=== PATIENT | male | born 1965 | race Caucasian/White ===

== ENCOUNTER → 2016-12-23 | Outpatient (CLI) | payer BC ==
--- NOTE | 2016-12-23 16:52 | REP ---
MRI study left knee without contrast: History: Joint pain. No comparison imaging. Technique: Axial, coronal and sagittal imaging planes were utilized for T1, proton density T2-weighted scans obtained with and without fat saturation. MRI findings: Cortical and medullary bone signal intensity are normal. There is a mild joint effusion. There is a Courtney's cyst in the posteromedial popliteal soft tissues which measures 4.2 cm in greatest diameter. No loose body is appreciated. There is a focal area of chondromalacia involving the posterior aspect of the medial femoral condyle with subcortical cyst formation. There is a complex principally horizontal tear in the body and posterior horn of the medial meniscus. Moderate chondromalacia changes seen in the medial femoral condyle and medial tibial plateau. No lateral meniscal tear is seen. The lateral collateral ligament is intact. Anterior posterior cruciate ligaments have an intact appearance. Patellar and quadriceps tendons are unremarkable. The medial collateral ligament however is abnormally thickened and partially discontinuous consistent with a subacute high grade partial medial collateral ligament tear. Impression: 1. Complex principally horizontal extensive tear medial meniscus. Moderate medial compartment chondromalacia. 2. High-grade partial subacute tear medial collateral ligament. 3. Courtney's cyst. Signed by Obdulio Rodriguez MD 12/24/2016 08:15 A
== END ==
LOC: M RAD 14:54
PROVIDERS: ATTEND Orthopaedic Surgery
DX: S83.282A Other tear of lateral meniscus, current injury, left knee, initial encounter (principal); X58.XXXA Exposure to other specified factors, initial encounter; Y92.89 Other specified places as the place of occurrence of the external cause; Y93.89 Activity, other specified; Y99.8 Other external cause status; M71.22 Synovial cyst of popliteal space [Baker], left knee

== ENCOUNTER → 2017-03-24 | Outpatient (CLI) | payer BC ==
[2017-03-24 17:22] LABS: BASO % 0.3 % (0.0-1.0); EOS # 0.1 K/mm3 (0.0-0.50); EOS % 1.1 % (0.0-3.0); LARGE UNSTAINED CELL # 0.2 K/mm3 (0.0-0.4); LARGE UNSTAINED CELL % 2.3 % (0.0-4.0); LYMPH # 2.1 K/mm3 (1.5-4.5); LYMPH % 28.4 % (24.0-44.0); MEAN CORPUSCULAR HEMOGLOBIN 31.6 pg (27.0-33.0); MEAN CORPUSCULAR HGB CONC 35.2 g/dl (32.0-36.5); MEAN CORPUSCULAR VOLUME 89.9 fl (80.0-96.0); MONO # 0.4 K/mm3 (0.0-0.8); MONO % 5.5 % (0.0-5.0); NEUTROPHILS # 4.6 K/mm3 (1.8-7.7); NEUTROPHILS % 62.4 % (36.0-66.0); PLATELET COUNT, AUTOMATED 275 k/mm3 (150-450); RED CELL DISTRIBUTION WIDTH 12.5 % (11.5-14.5); WHITE BLOOD COUNT 7.3 K/mm3 (4.0-10.0)
[2017-03-24 18:21] LABS: CALCIUM LEVEL 9.4 MG/DL (8.5-10.1); CREATININE FOR GFR 1.45 MG/DL (0.70-1.30); GLOMERULAR FILTRATION RATE 54.8 (>56)
== END ==
LOC: M LAB 16:47
PROVIDERS: ATTEND Emergency Medicine
DX: M23.304 Other meniscus derangements, unspecified medial meniscus, left knee (principal)

== ENCOUNTER → 2017-07-29 | Outpatient (REF) | payer BC | LOC: M LAB REF 14:52 | PROVIDERS: ATTEND Podiatrist Foot & Ankle Surgery | DX: R23.4 Changes in skin texture (principal); D23.72 Other benign neoplasm of skin of left lower limb, including hip ==

== ENCOUNTER → 2017-09-12 | Outpatient (CLI) | payer BC | LOC: M RAD 14:54 | DX: M25.549 Pain in joints of unspecified hand (principal) | CPT/HCPCS: 73130 ==

== ENCOUNTER 2018-09-03 07:25 | Day surgery (SDC) | payer BC ==
[~2018-09-03] VITALS: Ht 182.9 cm; Wt 116.6 kg
[~2018-09-03 07:25] MED LIST: ALBU17IN2 INH; AMBI5TAB PO; ATOR40TA75 PO; BALANCED SALT IRRIGATION SOLUTION 500ML BAG (FOR OR EYE MACHINE) As Ordered ONE; BRIM2OPD OU; CEFUROXIME 1MG/0.1ML INTRACAMERAL INJ As Ordered ONE; DUOVISC (0.50ML VISCOAT/0.55ML PROVISC) OPHTH KIT As Ordered ONE; GABA-843 PO; L-LY500T PO; LATA1POW OS; LIDOCAINE 0.75%/EPINEPHRINE 0.025% IN BSS 1ML SYR INTRACAMERAL (OR ONLY) As Ordered ONE; MELO15TA28 PO; OFLOXACIN 0.3 % (OCUFLOX) OPTH SOL 5ML OS ONE; PHENYLEPHRINE 2.5% OPHTH SOL 2ML OS ONE; POVIDONE-IODINE 5% OPHTH PREP SOL 30ML As Ordered ONE; PROPARACAINE 0.5% OPHTH SOL 15ML OS ONE; TROPICAMIDE 1% OPHTH SOLN 2ML OS ONE; VENL100T PO
[2018-09-03] MEDS ORDERED: MIDAZOLAM INJ 2 MG/2 ML VIAL (J2250) As Ordered ONE ×2 (07:43→09:32)
[2018-09-03] MEDS ORDERED: fentaNYL 100 MCG/2 ML INJECTION (J3010) As Ordered ONE (07:43)
[2018-09-03] MEDS ORDERED: DUOVISC (0.50ML VISCOAT/0.55ML PROVISC) OPHTH KIT As Ordered ONE ×2 (09:37→09:51)
[2018-09-03] MEDS ORDERED: ACETYLCHOLINE OPHTH SOLN 1% 2ML (MIOCHOL-E) As Ordered ONE (10:11)
[2018-09-03 10:55] VITALS: BP 113/65
--- NOTE | 2018-09-04 08:31 | RO ---
DATE OF PROCEDURE: 09/03/2018 PREOPERATIVE DIAGNOSES: 1. Visually significant nuclear sclerotic cataract left eye. 2. Astigmatism left eye. 3. Primary open angle glaucoma, moderate stage left eye. POSTOPERATIVE DIAGNOSES: 1. Visually significant nuclear sclerotic cataract left eye. 2. Astigmatism left eye. 3. Primary open angle glaucoma, moderate stage left eye. PROCEDURE: 1. Cataract extraction with use of phacoemulsification, and placement of intraocular lens, SN6AT3, 10.5 D, left eye, with use of femtosecond laser at 161 degrees 2. Placement of limbal relaxing incisions left eye. 3. Placement of Glaukos iStent left eye. SURGEON: Rm Sorenson DO BUSINESS SYSTEMS DEVELOPER: None. ANESTHESIA: Local with monitored anesthesia care (MAC). COMPLICATIONS: None POSTOPERATIVE CONDITION: Stable INDICATIONS FOR SURGERY: 1. Blurred vision affecting patients activities of daily living. DESCRIPTION OF PROCEDURE: The patient was seen in the preoperative area and properly identified. The correct operative eye was identified and marked. The patient received topical anesthetic, antibiotics, and topical dilating drops. The patient was then transferred to the laser room. The patient was positioned under the laser. A time-out was performed. The laser was applied. A 4.8 mm capsulotomy, fragmentation, and limbal relaxing incisions were created. The patient tolerated the procedure well and was transferred to the operating room. The correct side was re-identified and a time-out was performed. The eye was prepped and draped in a sterile fashion. The eyelids were isolated with Tegaderm tape, and the lids were held open with an adjustable speculum. A 1.0 mm paracentesis incision was made. Intraocular preservative-free Shugarcaine was then injected into the anterior chamber. Viscoelastic was then injected into the anterior chamber through the paracentesis. Using a 2.4 mm sharp-tipped keratome, the anterior chamber was entered via a temporal clear cornea incision. Utrata forceps were used to removed the free floating capsulotomy. A continuous curvilinear capsulorrhexis was created with Utrata forceps. Hydrodissection was performed with balanced salt solution (BSS) on a blunt cannula until the nucleus was able to rotate freely. The crystalline lens was phacoemulsified and aspirated. Irrigation/aspiration was used to remove the cortical material Cohesive viscoelastic was placed into the capsular bag to deepen it. The ORA device was turned on and two sets of measurements were taken and the implant power was confirmed. The implant was placed into the capsular bag and allowed to unfold. Placement was confirmed by visualizing the anterior capsulorrhexis. The implant was aligned at 161 degrees. Additional viscoelastic was placed in the anterior chamber and on top of the cornea. The head was untaped and rotated away. The microscope was rotated to 45 degrees. A gonioprism was placed on the cornea, and the angle was visualized. An iStent was placed into the trabecular meshwork without difficulty. A small gush of heme was noted at the iStent snorkel tip, indicating appropriate placement. A gentle tapping motion was used to seat the stent into position. The head was placed face up and the microscope to 0 degrees. Irrigation/aspiration was used to remove the viscoelastic. The clear corneal incision was hydrated with BSS on a blunt cannula. The lens was well positioned. The incisions were then tested for leaks and found to be negative. The eye was then palpated for appropriate pressure and adjusted accordingly with BSS. The eyelid speculum was then carefully removed. A shield was placed over the eye. The patient tolerated the procedure well and was discharge to the recovery unit in a stable condition. PAMELLA
== END 2018-09-03 11:04 | disposition home or self-care (01) ==
LOC: M SDC 07:25
PROVIDERS: ATTEND Ophthalmology
DX: H25.12 Age-related nuclear cataract, left eye (principal); H52.202 Unspecified astigmatism, left eye; H40.812 Glaucoma with increased episcleral venous pressure, left eye; G47.30 Sleep apnea, unspecified; J45.909 Unspecified asthma, uncomplicated; F41.9 Anxiety disorder, unspecified; E78.5 Hyperlipidemia, unspecified; Z91.030 Bee allergy status; Z79.899 Other long term (current) drug therapy
CPT/HCPCS: 65772; 66183; 66984; C1783; J2250; J3010

== ENCOUNTER 2018-11-05 07:30 | Day surgery (SDC) | payer BC ==
[~2018-11-05] VITALS: Ht 182.9 cm; Wt 117.9 kg
[~2018-11-05 07:30] MED LIST changes: +ACETAMINOPHEN 325 MG TAB PO PRN; +MIDAZOLAM INJ 2 MG/2 ML VIAL (J2250) As Ordered ONE; +OFLOXACIN 0.3 % (OCUFLOX) OPTH SOL 5ML OD ONE; -OFLOXACIN 0.3 % (OCUFLOX) OPTH SOL 5ML OS ONE; +PHENYLEPHRINE 2.5% OPHTH SOL 2ML OD ONE; -PHENYLEPHRINE 2.5% OPHTH SOL 2ML OS ONE; +PROPARACAINE 0.5% OPHTH SOL 15ML OD ONE; +PROPARACAINE 0.5% OPHTH SOL 15ML OD PRN; -PROPARACAINE 0.5% OPHTH SOL 15ML OS ONE; +TIZA4CAP6 PO; +TROPICAMIDE 1% OPHTH SOLN 2ML OD ONE; -TROPICAMIDE 1% OPHTH SOLN 2ML OS ONE; +fentaNYL 100 MCG/2 ML INJECTION (J3010) As Ordered ONE
[2018-11-05] MEDS ORDERED: VALI5TAB PO (08:01)
[2018-11-05] MEDS ORDERED: PROPARACAINE 0.5% OPHTH SOL 15ML As Ordered ONE (09:40)
[2018-11-05] MEDS ORDERED: ACETYLCHOLINE OPHTH SOLN 1% 2ML (MIOCHOL-E) As Ordered ONE (09:46)
[2018-11-05 10:30] VITALS: BP 120/76
[2018-11-05] MEDS ORDERED: TRIMETHOBENZAMIDE 300 MG CAP PO PRN (11:15)
--- NOTE | 2018-11-06 21:16 | RO ---
DATE OF PROCEDURE: 11/05/2018 PREPROCEDURE DIAGNOSES: 1. Visually significant cataract of the right eye. 2. Primary open angle glaucoma, mild stage. 3. Regular astigmatism. PREPROCEDURE DIAGNOSES: 1. Visually significant cataract of the right eye. 2. Primary open angled glaucoma, mild stage. 3. Regular astigmatism. PROCEDURES: 1. Extracapsular cataract removal with insertion of intraocular lens implant of the right eye, SN6AT3, 13.0 D at 23 degrees with use of intraoperative aberrometry and femtosecond laser. 2. Placement limbal relaxing incisions, right eye 3. Use of endoscopic cyclophotocoagulation, right eye (continuous mode, 270 degrees, 0.3mW) 4. Placement of iStent inject, right eye SURGEON: Rm Sorenson DO MARKETING TRAINEE: None. ANESTHESIA: Local with monitored anesthesia care (MAC). COMPLICATIONS: None POSTOPERATIVE CONDITION: Stable INDICATIONS FOR SURGERY: 1. Blurred vision affecting patients activities of daily living. DESCRIPTION OF PROCEDURE: The patient was seen in the preoperative area and properly identified. The correct operative eye was identified and marked. The patient received topical anesthetic, antibiotics, and topical dilating drops. The patient was then transferred to the laser room. The patient was positioned under the laser. A timeout was performed. The laser was applied. A 4.8 mm capsulotomy, fragmentation, and limbal relaxing incisions were created. The patient tolerated the procedure well and was transferred to the operating room. The correct side was re-identified and a timeout was performed. The eye was prepped and draped in a sterile fashion. The eyelids were isolated with Tegaderm tape and the lids were held open with an adjustable speculum. A 1.0 mm paracentesis incision was made. Intraocular preservative free Shugarcaine was then injected into the anterior chamber. Viscoelastic was then injected into the anterior chamber through the paracentesis. Using a 2.4 mm sharp-tipped keratome, the anterior chamber was entered via a temporal clear cornea incision. Utrata forceps were used to removed the free floating capsulotomy. Hydrodissection was performed with BSS on a blunt cannula until the nucleus was able to rotate freely. The crystalline lens was phacoemulsified and aspirated. Irrigation/aspiration was used to remove the cortical material Cohesive viscoelastic was placed into the capsular bag to deepen it. The Optiwave Refractive Analysis (ORA) device was turned on, two sets of measurements were obtained, and the implant power was confirmed. Viscoelastic was placed into the ciliary sulcus, the ECP probe was used to visualize the ciliary processes. The laser was applied and the probe was withdrawn. Additional viscoelastic was placed in the anterior chamber and on top of the cornea. The head was untaped and rotated away. The microscope was rotated to 45 degrees. A gonioprism was placed on the cornea, and the angle was visualized. Two iStent inject devices were placed into the trabecular meshwork without difficulty 4 clock hours apart. A small gush of heme was noted at the iStent snorkel tip, indicating appropriate placement. The head was placed face up and the microscope to 0 degrees. The ORA was turned back on, and used to align the toric implant. Several sets of measurements were obtained and the implant was aligned with the 23 degree axis until no rotation needed was achieved. The clear corneal incision was hydrated with BSS on a blunt cannula. The lens was well positioned. The incisions were then tested for leaks and found to be negative. The eye was then palpated for appropriate pressure and adjusted accordingly with BSS. The implant was placed into the capsular bag and allowed to unfold. Placement was confirmed by visualizing the anterior capsulorrhexis. Irrigation/aspiration was used to remove the viscoelastic. The clear corneal incision was hydrated with BSS on a blunt cannula. The lens was well positioned. The incisions were then tested for leaks and found to be negative. The eye was then palpated for appropriate pressure and adjusted accordingly with BSS. Irrigation/aspiration was used to remove the viscoelastic. The clear corneal incision was hydrated with BSS on a blunt cannula. The lens was well positioned. The incisions were then tested for leaks and found to be negative. The eye was then palpated for appropriate pressure and adjusted accordingly with BSS. The eyelid speculum was then carefully removed. A shield was placed over the eye. The patient tolerated the procedure well and was discharged to the recovery unit in a stable condition. PAMELLA
== END 2018-11-05 10:42 | disposition home or self-care (01) ==
LOC: M SDC 07:30
PROVIDERS: ATTEND Ophthalmology
DX: H25.11 Age-related nuclear cataract, right eye (principal); H40.1111 Primary open-angle glaucoma, right eye, mild stage; H52.221 Regular astigmatism, right eye; E78.5 Hyperlipidemia, unspecified; F41.9 Anxiety disorder, unspecified; G47.30 Sleep apnea, unspecified; Z91.030 Bee allergy status; Z79.899 Other long term (current) drug therapy; J45.909 Unspecified asthma, uncomplicated
CPT/HCPCS: 65772; 66183; 66711; 66984; C1783; J2250; J3010

== ENCOUNTER → 2019-04-14 | Outpatient (CLI) | payer BC ==
[~2019-04-14] MED LIST changes: -ACETAMINOPHEN 325 MG TAB PO PRN; -ALBU17IN2 INH; -BALANCED SALT IRRIGATION SOLUTION 500ML BAG (FOR OR EYE MACHINE) As Ordered ONE; -CEFUROXIME 1MG/0.1ML INTRACAMERAL INJ As Ordered ONE; -DUOVISC (0.50ML VISCOAT/0.55ML PROVISC) OPHTH KIT As Ordered ONE; -L-LY500T PO; +L-LY500T15 PO; -LIDOCAINE 0.75%/EPINEPHRINE 0.025% IN BSS 1ML SYR INTRACAMERAL (OR ONLY) As Ordered ONE; -MIDAZOLAM INJ 2 MG/2 ML VIAL (J2250) As Ordered ONE; -OFLOXACIN 0.3 % (OCUFLOX) OPTH SOL 5ML OD ONE; -PHENYLEPHRINE 2.5% OPHTH SOL 2ML OD ONE; -POVIDONE-IODINE 5% OPHTH PREP SOL 30ML As Ordered ONE; -PROPARACAINE 0.5% OPHTH SOL 15ML OD ONE; -PROPARACAINE 0.5% OPHTH SOL 15ML OD PRN; +PROV108A INH; -TROPICAMIDE 1% OPHTH SOLN 2ML OD ONE; +VALI5TAB PO; -fentaNYL 100 MCG/2 ML INJECTION (J3010) As Ordered ONE
[2019-04-14 18:56] LABS: C REACTIVE PROTEIN QUANTITATIV < 0.30 MG/DL (0.00-0.30); TROPONIN I < 0.02 NG/ML (< 0.10)
[2019-04-14 20:06] LABS: CK-MB VALUE MASS < 1.0 NG/ML (<3.6); CPK CREATINE PHOSPHOKINASE 155 U/L (39-308); MB/CK RELATIVE INDEX 0.65 (< OR =4)
== END ==
LOC: M WUC 16:39
PROVIDERS: ATTEND Family Medicine
DX: R07.9 Chest pain, unspecified (principal)

== ENCOUNTER → 2020-04-11 | Outpatient (CLI) | payer BC ==
[2020-04-11 13:50] LABS: ALBUMIN 4.2 GM/DL (3.2-5.2); ALT/SGPT 24 U/L (12-78); BILIRUBIN,TOTAL 0.6 MG/DL (0.2-1.0); BLOOD UREA NITROGEN 16 MG/DL (7-18); CALCIUM LEVEL 9.6 MG/DL (8.5-10.1); CARBON DIOXIDE LEVEL 30 MEQ/L (21-32); CHLORIDE LEVEL 105 MEQ/L (98-107); CREATININE FOR GFR 1.51 MG/DL (0.70-1.30); GLOMERULAR FILTRATION RATE 51.7 (>56); GLUCOSE, FASTING 97 MG/DL (70-100); POTASSIUM SERUM 4.1 MEQ/L (3.5-5.1); RHEUMATOID FACTOR QUANT < 10.0 IU/ML (<15.0); SODIUM LEVEL 139 MEQ/L (136-145); TOTAL PROTEIN 7.5 GM/DL (6.4-8.2); URIC ACID 7.6 MG/DL (3.5-7.2)
[2020-04-11 13:53] LABS: BASO % 0.4 % (0.0-1.0); EOS # 0.1 10^3/uL (0.0-0.5); EOS % 1.3 % (0.0-3.0); LYMPH # 1.8 10^3/uL (1.5-5.0); LYMPH % 24.4 % (24.0-44.0); MEAN CORPUSCULAR HEMOGLOBIN 31.6 pg (27.0-33.0); MEAN CORPUSCULAR HGB CONC 34.2 g/dl (32.0-36.5); MEAN CORPUSCULAR VOLUME 92.5 fl (80.0-96.0); MONO # 0.6 10^3/uL (0.0-0.8); MONO % 7.3 % (0.0-5.0); NEUTROPHILS % 66.3 % (36.0-66.0); PLATELET COUNT, AUTOMATED 275 10^3/uL (150-450); RED BLOOD COUNT 4.11 10^6/uL (4.30-6.10); WHITE BLOOD COUNT 7.6 10^3/uL (4.0-10.0)
[2020-04-11 14:46] LABS: ERYTHROCYTE SEDIMENTATION RATE 15 mm/hr (0-20)
== END ==
LOC: M WUC 09:28
PROVIDERS: ATTEND Physician Assistant
DX: M25.541 Pain in joints of right hand (principal)

== ENCOUNTER → 2020-12-27 | Outpatient (CLI) | payer BC ==
[~2020-12-27] MED LIST changes: +GABA-282 PO; -GABA-843 PO
--- NOTE | 2020-12-28 07:38 | REP ---
INDICATION: CKD 3 COMPARISON: None TECHNIQUE: Real time breaux scale ultrasound examination using curved array transducer. FINDINGS: Bilateral kidneys are normal in contour, size, echogenicity, and reniform shape. Increased central sinus fat consistent with chronic renal disease. No hydronephrosis, nephrolithiasis, cystic or renal mass lesion. Right kidney measures 10.6 x 6.6 x 5.9 cm. Left kidney measures 10.9 x 6.1 x 5.7 cm. Bladder is grossly unremarkable. Prostate gland measures 3.4 x 3.8 x 5.2 cm (35 cc). IMPRESSION: 1. Findings consistent with the given history of chronic renal disease. <Electronically signed by Luis Cavazos > 12/28/20 0730
== END ==
LOC: M RAD 10:50
PROVIDERS: ATTEND Family Medicine
DX: N18.31 Chronic kidney disease, stage 3a (principal)

== ENCOUNTER → 2021-02-27 | Outpatient (CLI) | payer BC ==
--- NOTE | 2021-03-01 00:16 | REPVR ---
PROCEDURE INFORMATION: Exam: MR Lumbar Spine Without Contrast Exam date and time: 02/27/2021 4:19 PM Age: 56 years old Clinical indication: Low back pain; Additional info: Lbp TECHNIQUE: Imaging protocol: Multiplanar magnetic resonance images of the lumbar spine without intravenous contrast. COMPARISON: RENAL US 12/27/2020 11:08 AM FINDINGS: Patient motion. Anterolisthesis of L5 on S1 measures 9 mm and is secondary to bilateral L5 pars defects. Mild retrolisthesis of L2 on L3, L3 on L4 and L4 on L5. Vertebral body heights are preserved. Multilevel disc desiccation. Disc space narrowing greatest at L5-S1, moderate. No evidence of discitis/osteomyelitis. Conus medullaris terminates at T12-L1. No epidural fluid collection. L1-L2: Minimal disc bulge and mild bilateral facet joint arthropathy without significant central or foraminal stenosis. L2-L3: Mild disc bulge with mild bilateral facet joint arthropathy and small bilateral facet joint effusions. No significant central canal stenosis. There is mild right foraminal stenosis. L3-L4: Mild disc bulge with mild bilateral facet joint arthropathy, small to moderate facet joint effusions and posterior laxity of ligamentum flavum. No significant central canal stenosis. Mild right and [id number] left foraminal stenosis. L4-L5: Mild disc bulge with mild facet joint arthropathy and small bilateral facet joint effusions. No significant central canal stenosis. [id number] right and mild left foraminal stenosis. L5-S1: Unroofing of disc with disc bulge and bilateral facet joint arthropathy. No central canal stenosis. There is severe bilateral foraminal stenosis with mass effect upon both exiting L5 nerves. IMPRESSION: 1. Bilateral L5 pars defects with anterolisthesis of L5 on S1 and degenerative findings contributing to severe bilateral foraminal stenosis at L5-S1 with mass effect upon both exiting L5 nerves. 2. No significant central canal compromise throughout the lumbar spine. Electronically signed by: Rogers Murillo On 03/01/2021 00:16:06 AM
== END ==
LOC: M PLAIMG 15:45
PROVIDERS: ATTEND Physician Assistant
DX: M51.26 Other intervertebral disc displacement, lumbar region (principal); M43.16 Spondylolisthesis, lumbar region

== ENCOUNTER → 2021-04-04 | Outpatient (CLI) | payer BC ==
[2021-04-04 15:08] LABS: BASO % 0.3 % (0.0-1.0); EOS % 0.3 % (0.0-3.0); HEMATOCRIT 36.5 % (42.0-52.0); HEMOGLOBIN 12.8 g/dl (13.5-17.5); LYMPH % 26.7 % (24.0-44.0); MEAN CORPUSCULAR HEMOGLOBIN 32.7 pg (27.0-33.0); MEAN CORPUSCULAR HGB CONC 35.1 g/dl (32.0-36.5); MEAN CORPUSCULAR VOLUME 93.4 fl (80.0-96.0); MONO # 0.6 10^3/uL (0.0-0.8); MONO % 7.6 % (2.0-8.0); NEUTROPHILS # 4.8 10^3/uL (1.5-8.5); NEUTROPHILS % 64.8 % (36.0-66.0); PLATELET COUNT, AUTOMATED 260 10^3/uL (150-450); RED BLOOD COUNT 3.91 10^6/uL (4.30-6.10); WHITE BLOOD COUNT 7.4 10^3/uL (4.0-10.0)
[2021-04-04 15:41] LABS: ALBUMIN 3.9 GM/DL (3.2-5.2); BILIRUBIN,TOTAL 0.8 MG/DL (0.2-1.0); CALCIUM LEVEL 9.5 MG/DL (8.5-10.1); CHOLESTEROL RISK RATIO 2.891 (<5); CREATININE FOR GFR 1.52 MG/DL (0.70-1.30); GLOMERULAR FILTRATION RATE 51.1 (>56); PERCENT SATURATION 47.1 % (19.7-50.0); TOTAL PROTEIN 7.4 GM/DL (6.4-8.2); URIC ACID 6.6 MG/DL (3.5-7.2)
[2021-04-04 15:44] LABS: TOTAL 25(OH) VITAMIN D 28.3 NG/ML (30.0-100.0)
== END ==
LOC: M PLALAB 12:51
PROVIDERS: ATTEND Family Medicine
DX: N18.31 Chronic kidney disease, stage 3a (principal); E78.2 Mixed hyperlipidemia; E55.9 Vitamin D deficiency, unspecified; M10.9 Gout, unspecified; D50.9 Iron deficiency anemia, unspecified; Z12.5 Encounter for screening for malignant neoplasm of prostate
CPT/HCPCS: 36415; 80053; 80061; 82306; 82728; 83550; 84550; 85025; G0103

== ENCOUNTER → 2021-04-04 | Outpatient (CLI) | payer BC ==
[2021-04-04 15:08] LABS: HEMATOCRIT 35.8 % (42.0-52.0); HEMOGLOBIN 12.6 g/dl (13.5-17.5); MEAN CORPUSCULAR HEMOGLOBIN 32.8 pg (27.0-33.0); MEAN CORPUSCULAR HGB CONC 35.2 g/dl (32.0-36.5); MEAN CORPUSCULAR VOLUME 93.2 fl (80.0-96.0); PLATELET COUNT, AUTOMATED 253 10^3/uL (150-450); RED BLOOD COUNT 3.84 10^6/uL (4.30-6.10); WHITE BLOOD COUNT 7.6 10^3/uL (4.0-10.0)
[2021-04-04 15:36] LABS: PERCENT SATURATION 39.1 % (19.7-50.0)
== END ==
LOC: M PLALAB 12:53
PROVIDERS: ATTEND Nurse Practitioner Family
DX: D50.9 Iron deficiency anemia, unspecified (principal)

== ENCOUNTER → 2021-06-07 | Outpatient (CLI) | payer BC ==
[2021-06-07 16:41] LABS: HEMATOCRIT 33.9 % (42.0-52.0); HEMOGLOBIN 11.3 g/dl (13.5-17.5); MEAN CORPUSCULAR HEMOGLOBIN 32.1 pg (27.0-33.0); MEAN CORPUSCULAR HGB CONC 33.3 g/dl (32.0-36.5); MEAN CORPUSCULAR VOLUME 96.3 fl (80.0-96.0); PLATELET COUNT, AUTOMATED 233 10^3/uL (150-450); RED BLOOD COUNT 3.52 10^6/uL (4.30-6.10); WHITE BLOOD COUNT 6.6 10^3/uL (4.0-10.0)
== END ==
LOC: M WUC 12:06
PROVIDERS: ATTEND Nurse Practitioner Family
DX: D50.9 Iron deficiency anemia, unspecified (principal)

== ENCOUNTER → 2021-09-11 | Outpatient (CLI) | payer BC | LOC: M RAD 10:01 | PROVIDERS: ATTEND Physician Assistant | DX: J45.30 Mild persistent asthma, uncomplicated (principal) ==

== ENCOUNTER → 2021-10-04 | Outpatient (CLI) | payer BC ==
[2021-10-04 15:35] LABS: HEMATOCRIT 36.5 % (42.0-52.0); HEMOGLOBIN 12.5 g/dl (13.5-17.5); MEAN CORPUSCULAR HGB CONC 34.2 g/dl (32.0-36.5); MEAN CORPUSCULAR VOLUME 90.6 fl (80.0-96.0); PLATELET COUNT, AUTOMATED 263 10^3/uL (150-450); RED BLOOD COUNT 4.03 10^6/uL (4.30-6.10); WHITE BLOOD COUNT 7.5 10^3/uL (4.0-10.0)
[2021-10-04 16:05] LABS: PERCENT SATURATION 24.5 % (19.7-50.0)
== END ==
LOC: M WUC 13:11
PROVIDERS: ATTEND Nurse Practitioner Family
DX: K22.70 Barrett's esophagus without dysplasia (principal); K44.9 Diaphragmatic hernia without obstruction or gangrene; K25.3 Acute gastric ulcer without hemorrhage or perforation; K57.30 Diverticulosis of large intestine without perforation or abscess without bleeding; D50.9 Iron deficiency anemia, unspecified

== ENCOUNTER → 2022-02-18 | Outpatient (CLI) | payer BC ==
[2022-02-18 10:16] LABS: BASO % 0.5 % (0.0-1.0); EOS # 0.1 10^3/uL (0.0-0.5); EOS % 1.4 % (0.0-3.0); HEMATOCRIT 35.2 % (42.0-52.0); HEMOGLOBIN 11.9 g/dl (13.5-17.5); LYMPH # 1.8 10^3/uL (1.5-5.0); LYMPH % 22.4 % (24.0-44.0); MEAN CORPUSCULAR HGB CONC 33.8 g/dl (32.0-36.5); MEAN CORPUSCULAR VOLUME 91.7 fl (80.0-96.0); MONO # 0.7 10^3/uL (0.0-0.8); MONO % 8.8 % (2.0-8.0); NEUTROPHILS # 5.2 10^3/uL (1.5-8.5); NEUTROPHILS % 66.4 % (36.0-66.0); PLATELET COUNT, AUTOMATED 219 10^3/uL (150-450); RED BLOOD COUNT 3.84 10^6/uL (4.30-6.10); WHITE BLOOD COUNT 7.9 10^3/uL (4.0-10.0)
[2022-02-18 15:29] LABS: BILIRUBIN,TOTAL 0.6 MG/DL (0.2-1.0); CALCIUM LEVEL 9.4 MG/DL (8.5-10.1); CHOLESTEROL RISK RATIO 3.522 (<5); CREATININE FOR GFR 1.64 MG/DL (0.70-1.30); GLOMERULAR FILTRATION RATE 46.7 (>56); POTASSIUM SERUM 4.3 MEQ/L (3.5-5.1); TOTAL 25(OH) VITAMIN D 56.7 NG/ML (30.0-100.0); TOTAL PROTEIN 7.1 GM/DL (6.4-8.2)
[2022-02-19 00:49] LABS: HEMOGLOBIN A1c 5.4 %
== END ==
LOC: M LAB 09:28
PROVIDERS: ATTEND Physician Assistant
DX: M10.9 Gout, unspecified (principal); K22.70 Barrett's esophagus without dysplasia; E55.9 Vitamin D deficiency, unspecified; E78.2 Mixed hyperlipidemia

== ENCOUNTER → 2022-07-17 | Outpatient (CLI) | payer BC ==
[~2022-07-17] MED LIST changes: +ALBU6.7H6 INH; -PROV108A INH
[2022-07-17 19:36] LABS: HEMATOCRIT 36.7 % (42.0-52.0); HEMOGLOBIN 12.2 g/dl (13.5-17.5); MEAN CORPUSCULAR HEMOGLOBIN 31.3 pg (27.0-33.0); MEAN CORPUSCULAR HGB CONC 33.2 g/dl (32.0-36.5); MEAN CORPUSCULAR VOLUME 94.1 fl (80.0-96.0); PLATELET COUNT, AUTOMATED 270 10^3/uL (150-450); WHITE BLOOD COUNT 7.8 10^3/uL (4.0-10.0)
[2022-07-17 19:39] LABS: FERRITIN 70.2 NG/ML (10.5-307.3)
[2022-07-18 00:09] LABS: PERCENT SATURATION 23.3 % (19.7-50.0)
== END ==
LOC: M WUC 15:11
PROVIDERS: ATTEND Nurse Practitioner Family
DX: K22.0 Achalasia of cardia (principal); K25.3 Acute gastric ulcer without hemorrhage or perforation; K51.30 Ulcerative (chronic) rectosigmoiditis without complications; K44.9 Diaphragmatic hernia without obstruction or gangrene; D50.9 Iron deficiency anemia, unspecified

== ENCOUNTER → 2022-10-03 | Outpatient (REF) | payer BC | LOC: M LAB REF 16:46 | PROVIDERS: ATTEND Physician Assistant | DX: S91.101A Unspecified open wound of right great toe without damage to nail, initial encounter (principal); W18.30XA Fall on same level, unspecified, initial encounter; Y92.009 Unspecified place in unspecified non-institutional (private) residence as the place of occurrence of the external cause ==

== ENCOUNTER → 2022-10-04 | Outpatient (CLI) | payer BC | LOC: M WUC 14:19 | PROVIDERS: ATTEND Physician Assistant | DX: S91.101A Unspecified open wound of right great toe without damage to nail, initial encounter (principal); W18.30XA Fall on same level, unspecified, initial encounter; Y92.009 Unspecified place in unspecified non-institutional (private) residence as the place of occurrence of the external cause ==

== ENCOUNTER → 2023-01-03 | Outpatient (CLI) | payer BC | LOC: M PLAIMG 10:21 | PROVIDERS: ATTEND Physician Assistant | DX: M25.512 Pain in left shoulder (principal) ==

== ENCOUNTER → 2023-04-29 | Outpatient (CLI) | payer BC | LOC: M RAD 16:02 | PROVIDERS: ATTEND Physician Assistant | DX: K40.90 Unilateral inguinal hernia, without obstruction or gangrene, not specified as recurrent (principal) ==

== ENCOUNTER → 2023-07-10 | Day surgery (SDC) | payer BC ==
[~2023-07-10] VITALS: Ht 182.9 cm; Wt 111.1 kg
[~2023-07-10] MED LIST changes: +ACETAMINOPHEN 1000MG 100ML IV BAG As Ordered ONE; +ALLO100T PO; +AMPH1CAP15 PO; +DICL20GE TP; +GLYCOPYRROLATE INJ 0.2 MG/ML 2 ML VIAL As Ordered ONE; +HYDROMORPHONE HCL 0.5 MG/ 0.5 ML SYRINGE IV PRN; +KETOROLAC 60MG 2ML VIAL As Ordered ONE; +LIDOCAINE 1% SDV 5ML VIAL SC PRN; +LIDOCAINE 2% 100MG/5ML SDV (FOR ANES.) As Ordered ONE; +LR 1,000 ML IV SCH; +LUMIGAN OD; +MIDAZOLAM INJ 2MG/2ML VIAL As Ordered ONE; +ONDANSETRON 4MG 2ML VIAL As Ordered ONE; +ONDANSETRON 4MG 2ML VIAL IV PRN; +PANT40TA29 PO; +PREG75CA3 PO; +PROMETHAZINE 25MG/ML 1ML VIAL IV PRN; +ROCURONIUM BROMIDE 50MG/5ML VIAL As Ordered ONE; +SUCR1TAB56 PO; +SUGAMMADEX SODIUM 500 MG/5 ML VIAL (BRIDION) As Ordered ONE; +TIMO0.5S20 OS; +VITMTA PO; +ceFAZolin SOD 2 GM in IV 1 EA IV ONE; +ePHEDrine SULFATE 25 MG/5 ML(5MG/ML) SYRINGE As Ordered ONE; +fentaNYL 100 MCG/2 ML INJECTION IV PRN; +fentaNYL 250 MCG/5 ML INJECTION As Ordered ONE; +oxyCODONE 5MG TAB PO PRN; +propofoL 200 MG/20 ML VIAL As Ordered ONE
[2023-07-10 14:07] VITALS: BP 121/65; TEMP 97.4; O2SAT 98
== END | disposition home or self-care (01) ==
LOC: M SDC 07:58
PROVIDERS: ATTEND Surgery
DX: K40.90 Unilateral inguinal hernia, without obstruction or gangrene, not specified as recurrent (principal); K42.9 Umbilical hernia without obstruction or gangrene; E78.00 Pure hypercholesterolemia, unspecified; J45.909 Unspecified asthma, uncomplicated; G47.30 Sleep apnea, unspecified; Z79.899 Other long term (current) drug therapy; Z87.891 Personal history of nicotine dependence; Z88.6 Allergy status to analgesic agent
CPT/HCPCS: 49591; 49650; C1781; J0131; J0665; J0690; J1100; J1885; J2250; J2405; J2550; J3010; S2900

== ENCOUNTER 2023-11-21 07:57 | Day surgery (SDC) | payer BC, OTHER ==
[~2023-11-21] VITALS: Ht 182.9 cm; Wt 106.6 kg
[~2023-11-21 07:57] MED LIST changes: -ACETAMINOPHEN 1000MG 100ML IV BAG As Ordered ONE; +ESSETAB4 PO; -GLYCOPYRROLATE INJ 0.2 MG/ML 2 ML VIAL As Ordered ONE; -HYDROMORPHONE HCL 0.5 MG/ 0.5 ML SYRINGE IV PRN; -KETOROLAC 60MG 2ML VIAL As Ordered ONE; -LIDOCAINE 1% SDV 5ML VIAL SC PRN; -LIDOCAINE 2% 100MG/5ML SDV (FOR ANES.) As Ordered ONE; -LR 1,000 ML IV SCH; -LUMIGAN OD; +LUMIGAN OU; -MIDAZOLAM INJ 2MG/2ML VIAL As Ordered ONE; -ONDANSETRON 4MG 2ML VIAL As Ordered ONE; -ONDANSETRON 4MG 2ML VIAL IV PRN; -PROMETHAZINE 25MG/ML 1ML VIAL IV PRN; -ROCURONIUM BROMIDE 50MG/5ML VIAL As Ordered ONE; -SUGAMMADEX SODIUM 500 MG/5 ML VIAL (BRIDION) As Ordered ONE; +TIZA4CAP3 PO; -TIZA4CAP6 PO; -ceFAZolin SOD 2 GM in IV 1 EA IV ONE; -ePHEDrine SULFATE 25 MG/5 ML(5MG/ML) SYRINGE As Ordered ONE; -fentaNYL 100 MCG/2 ML INJECTION IV PRN; -fentaNYL 250 MCG/5 ML INJECTION As Ordered ONE; -oxyCODONE 5MG TAB PO PRN; -propofoL 200 MG/20 ML VIAL As Ordered ONE
[2023-11-21] MEDS ORDERED: LR 1,000 ML IV SCH (08:00)
[2023-11-21] MEDS ORDERED: ALBU2.5V10 INH (08:22)
[2023-11-21] MEDS ORDERED: ROCURONIUM BROMIDE 50MG/5ML VIAL As Ordered ONE (08:25)
[2023-11-21] MEDS ORDERED: fentaNYL 100 MCG/2 ML INJECTION As Ordered ONE (08:25)
[2023-11-21] MEDS ORDERED: ONDANSETRON 4MG 2ML VIAL As Ordered ONE (08:25)
[2023-11-21] MEDS ORDERED: propofoL 200 MG/20 ML VIAL As Ordered ONE (08:25)
[2023-11-21] MEDS ORDERED: LIDOCAINE 2% 100MG/5ML SDV (FOR ANES.) As Ordered ONE (08:25)
[2023-11-21] MEDS ORDERED: MIDAZOLAM INJ 2MG/2ML VIAL As Ordered ONE (08:26)
[2023-11-21 08:41] LABS: HEMATOCRIT 35.2 % (42.0-52.0); HEMOGLOBIN 12.2 g/dl (13.5-17.5); MEAN CORPUSCULAR HEMOGLOBIN 31.7 pg (27.0-33.0); MEAN CORPUSCULAR HGB CONC 34.7 g/dl (32.0-36.5); MEAN CORPUSCULAR VOLUME 91.4 fl (80.0-96.0); PLATELET COUNT, AUTOMATED 254 10^3/uL (150-450); RED BLOOD COUNT 3.85 10^6/uL (4.30-6.10)
[2023-11-21] MEDS: SCOPOLAMINE 1MG TRANSDERMAL PATCH TOP ONE (08:43)
[2023-11-21] MEDS ORDERED: SUGAMMADEX SODIUM 500 MG/5 ML VIAL (BRIDION) As Ordered ONE (09:07)
[2023-11-21] MEDS ORDERED: KETOROLAC 60MG 2ML VIAL As Ordered ONE (09:07)
[2023-11-21] MEDS: ceFAZolin SOD 2 GM in IV 1 EA IV ONE (09:25)
[2023-11-21] MEDS ORDERED: ACETAMINOPHEN 1000MG 100ML IV BAG As Ordered ONE (09:44)
[2023-11-21] MEDS ORDERED: MORPHINE 2 MG/ML 1ML VIAL IV PRN (11:10)
[2023-11-21] MEDS ORDERED: fentaNYL 100 MCG/2 ML INJECTION IV PRN (11:10)
[2023-11-21] MEDS: ONDANSETRON 4MG 2ML VIAL IV PRN (11:40)
[2023-11-21] MEDS: oxyCODONE 5MG TAB PO PRN (11:41)
[2023-11-21] MEDS: METOCLOPRAMIDE INJ 10MG/2ML VIAL IV ONE (11:50)
[2023-11-21] MEDS ORDERED: NORCO, ANEXSIA 5/325MG TABLET (HYDROcodone/ACETAMINOPHEN) PO PRN (13:05)
[2023-11-21 13:45] VITALS: BP 116/63; TEMP 97.1; O2SAT 98
== END 2023-11-21 14:16 | disposition home or self-care (01) ==
LOC: M SDC 07:57
PROVIDERS: ATTEND Surgery
DX: K40.31 Unilateral inguinal hernia, with obstruction, without gangrene, recurrent (principal); G47.30 Sleep apnea, unspecified; Z88.6 Allergy status to analgesic agent; Z91.030 Bee allergy status; Z79.899 Other long term (current) drug therapy; Z87.891 Personal history of nicotine dependence
CPT/HCPCS: 36415; 49651; 85027; C1781; J0131; J0665; J0690; J1100; J1885; J2250; J2405; J2765; J3010; S2900

== ENCOUNTER → 2024-06-08 | Outpatient (CLI) | payer BC ==
[~2024-06-08] MED LIST changes: +ALBU2.5V10 INH; +GABA-1172 PO; -GABA-282 PO
== END ==
LOC: M PLAIMG 06:46
PROVIDERS: ATTEND Orthopaedic Surgery
DX: M54.50 Low back pain, unspecified (principal)